=== PATIENT | male | born 1975 | race African-American/Black ===

== ENCOUNTER 2016-07-02 09:29 | Emergency (ER) | payer OTHER ==
[~2016-07-02] VITALS: Ht 182.9 cm; Wt 93.0 kg
[~2016-07-02 09:29] MED LIST: LISINOPRIL5 MG ORAL
[2016-07-02 10:00] VITALS: BP 120/77
[2016-07-02 10:19] LABS: BASOPHILS % (AUTO) 3.1 % (0.0-2.0); LYMPHOCYTES % (AUTO) 28.3 % (20.0-45.0); MEAN CORPUSCULAR HEMOGLOBIN 28.6 PG (27.0-31.0); MEAN CORPUSCULAR HGB CONC 32.1 G/DL (32.0-36.0); MEAN CORPUSCULAR VOLUME 89 FL (80-99); MEAN PLATELET VOLUME 8.1 FL (6.5-10.1); MONOCYTES % (AUTO) 7.9 % (1.0-10.0); NEUTROPHILS % (AUTO) 51.8 % (45.0-75.0); PLATELET COUNT 336 K/UL (150-450); RED BLOOD COUNT 5.83 M/UL (4.70-6.10); RED CELL DISTRIBUTION WIDTH 11.9 % (11.6-14.8); WHITE BLOOD COUNT 6.3 K/UL (4.8-10.8)
[2016-07-02 10:26] LABS: ALANINE AMINOTRANSFERASE 40 U/L (3-41); ALBUMIN/GLOBULIN RATIO 1.5 (1.0-2.7); ANION GAP 17 (5-15); ASPARTATE AMINO TRANSFERASE 23 U/L (5-40); CALCIUM 10.2 mg/dL (8.6-10.2); CARBON DIOXIDE 27 mEQ/L (20-30); CHLORIDE 93 mEQ/L (98-107); CREATININE 1.3 mg/dL (0.7-1.2); GLOMERULAR FILTRATION RATE > 60 mL/min (>60); HEMOLYSIS 7; POTASSIUM 4.3 mEQ/L (3.4-4.9); SODIUM 137 mEQ/L (135-145); TOTAL PROTEIN 7.9 g/dL (6.6-8.7)
[2016-07-02 10:31] LABS: TROPONIN I < 0.30 ng/mL (<=0.30)
[2016-07-02 10:41] LABS: CKMB < 1.5 ng/mL (< 6.7)
[2016-07-02 12:00] VITALS: BP 130/80
--- NOTE | 2016-07-02 13:54 | Diagnostic Imaging Report ---
Indication: Chest Pain Comparison: None A single view chest radiograph was obtained. Findings: Cardiomediastinal appearance is within normal limits for age. Pulmonary vascularity is appropriate. The diaphragmatic contour is smooth and costophrenic angles are sharp. No pleural effusions are identified. The bones are unremarkable. Impression: No acute findings
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
--- NOTE | 2016-07-05 14:01 | Cardiology Report ---
APPROVED REPORT EKG Measurement Heart [id number] Sinus bradycardia Otherwise normal ECG
== END 2016-07-02 12:32 | disposition home or self-care (01) ==
LOC: EDBD 09:29 → EMR 10:50
DX: R55 Syncope and collapse (principal); I10 Essential (primary) hypertension; R07.9 Chest pain, unspecified
CPT/HCPCS: 36415; 71010; 80053; 82550; 82553; 84484; 85025; 93005; 99283